=== PATIENT | female | born 1995 | race Two or more races ===

== ENCOUNTER 2018-01-07 05:38 | Emergency (ER) | payer BC ==
[~2018-01-07] VITALS: Ht 175.3 cm; Wt 54.0 kg
[2018-01-07] MEDS ORDERED: MORPHINE SULFATE 2 MG/ML SYR IV STA (05:51)
[2018-01-07] MEDS ORDERED: ONDANSETRON HCL INJ 2 MG/ML VIAL IV STA (05:51)
[2018-01-07] MEDS ORDERED: SODIUM CHLORIDE 0.9% 1000ML 1,000 ML IV ONE (06:00)
[2018-01-07 06:09] LABS: BASOPHILS % 0.1 % (0.0-1.0); EOSINOPHILS % 0.4 % (0.0-6.0); HEMATOCRIT 42.1 % (34.2-44.1); LYMPHOCYTES # (AUTO) 3.6 (1.0-3.2); LYMPHOCYTES % 35.4 % (18.0-39.1); MEAN CORPUSCULAR HEMOGLOBIN 31.6 pg (28-32); MEAN CORPUSCULAR HGB CONC 35.6 g/dL (31-35); MEAN CORPUSCULAR VOLUME 88.8 fL (81-99); MONOCYTES % 9.6 % (4.4-11.3); NEUTROPHILS # (AUTO) 5.5 (2.1-6.9); NEUTROPHILS % 54.2 % (38.7-80.0); PLATELET COUNT 247 x10e3/uL (140-360); RED BLOOD COUNT 4.74 x10e6/uL (3.6-5.1)
[2018-01-07 06:15] LABS: BILIRUBIN,URINE NEGATIVE (NEGATIVE); CLARITY,URINE CLOUDY (CLEAR); COLOR,URINE STRAW (YELLOW); KETONES,URINE NEGATIVE (NEGATIVE); LEUKOCYTE ESTERASE ,URINE NEGATIVE (NEGATIVE); NITRITE,URINE NEGATIVE (NEGATIVE); PREGNANCY TEST, URINE NEGATIVE (NEGATIVE); PROTEIN,URINE DIPSTICK NEGATIVE (NEGATIVE); URINE UROBILINOGEN 0.2 mg/dL (0.2 - 1)
[2018-01-07 06:25] LABS: ALANINE AMINOTRANSFERASE 26 IU/L (0-55); ALBUMIN/GLOBULIN RATIO 1.7 (0.8-2.0); ALKALINE PHOSPHATASE 79 IU/L (40-150); ANION GAP 18.4 mmol/L (8-16); BLOOD UREA NITROGEN 6 mg/dL (7-26); BUN/CREATININE RATIO 8 (6-25); CALCIUM 10.6 mg/dL (8.4-10.2); CARBON DIOXIDE 20 mmol/L (22-29); CHLORIDE 103 mmol/L (98-107); CREATININE, SERUM 0.76 mg/dL (0.57-1.11); EST GLOMERULAR FILTRATION RATE > 60 ML/MIN (60-); GLUCOSE 104 mg/dL (74-118); POTASSIUM 3.4 mmol/L (3.5-5.1); SODIUM 138 mmol/L (136-145)
[2018-01-07 06:29] LABS: BACTERIA,URINE FEW /HPF; EPITHELIAL CELLS,URINE RARE /LPF
[2018-01-07 06:41] LABS: AMYLASE 78 U/L (25-125); LIPASE 16 U/L (8-78)
--- NOTE | 2018-01-07 07:27 | Diagnostic Imaging Report ---
PROCEDURE: CT ABDOMEN AND PELVIS WITH CONTRAST TECHNIQUE: The abdomen and pelvis were scanned utilizing a multidetector helical scanner from the diaphragm to the lesser trochanter after the IV administration of 100 cc of Isovue 370 and the oral administration of 900 cc of water. Coronal and sagittal multiplanar reformations were obtained. COMPARISON: None. INDICATIONS: RIGHT LOWER QUADRANT PAIN FINDINGS: LOWER THORAX: Normal. HEPATOBILIARY: No focal hepatic lesions. No biliary ductal dilatation. SPLEEN: No splenomegaly. PANCREAS: No focal masses or ductal dilatation. ADRENALS: No adrenal nodules. KIDNEYS/URETERS: No hydronephrosis, stones, or solid mass lesions. PELVIC ORGANS/BLADDER: The bladder is distended. PERITONEUM / RETROPERITONEUM: No free air or fluid. LYMPH NODES: No lymphadenopathy. VESSELS: Unremarkable. GI TRACT: No distention or wall thickening. Normal appendix. There is fecalization of jejunal loops without distension, suggestive of slow transit. BONES AND SOFT TISSUES: Unremarkable. IMPRESSION: No CT evidence of appendicitis or other etiology for right lower quadrant pain. Distended bladder. Dictated by: LIDIA PICKETT M.D. on 01/07/2018 at 7:34 Electronically approved by: LIDIA PICKETT M.D. on 01/07/2018 at 7:34
[2018-01-07] MEDS ORDERED: SODIUM CHLORIDE 0.9% 50ML 50 ML ONE (08:14)
[2018-01-07] MEDS ORDERED: IOPAMIDOL 370 MG/ML 200 ML INFUS..BTL INJ ONE (08:14)
--- NOTE | 2018-01-07 09:08 | Diagnostic Imaging Report ---
PROCEDURE:PELVIC DOPPLER US COMPARISON:None. INDICATIONS:Eval for Cyst / Ovarian Torsion, Right Side Pain TECHNIQUE: Grayscale transverse and sagittal transabdominal and transvaginal images were obtained of the pelvis. Transvaginal imaging was medically necessary to further evaluate etiology of pain. FINDINGS: UTERUS: Measures up to 6.2 cm in length. Unremarkable appearance without evidence of mass. ENDOMETRIUM: Endometrial stripe measures 4 mm. RIGHT OVARY: Measures up to 4 cm and is unremarkable in appearance. Doppler flow is demonstrated. No evidence of mass. LEFT OVARY: Measures up to 3.8 cm and demonstrates Doppler flow. There is a left ovarian cyst, measuring up to 3.2 cm, with some wall thickening, and peripheral flow. There is small amount of likely physiologic free fluid within the pelvis. No adnexal masses. CONCLUSION: No acute sonographic abnormality in the abdomen or pelvis. Vascular flow is demonstrated in bilateral ovaries. A 3.2 cm likely corpus luteum cyst in the left ovary, likely physiologic. Dictated by: LIDIA PICKETT M.D. on 01/07/2018 at 9:15 Electronically approved by: LIDIA PICKETT M.D. on 01/07/2018 at 9:15
--- NOTE | 2018-01-07 09:09 | Diagnostic Imaging Report ---
PROCEDURE:TRANSVAGINAL ULTRASOUND COMPARISON:None. INDICATIONS:Eval for Cyst / Ovarian Torsion, Right Side Pain TECHNIQUE: Grayscale transverse and sagittal transabdominal and transvaginal images were obtained of the pelvis. FINDINGS: Please refer to the concurrently performed pelvic ultrasound report for details. Dictated by: LIDIA PICKETT M.D. on 01/07/2018 at 9:15 Electronically approved by: LIDIA PICKETT M.D. on 01/07/2018 at 9:15
[2018-01-07] MEDS ORDERED: KETOROLAC TROMETHAMINE 30 MG/ML VIAL IV STA (09:37)
== END 2018-01-07 10:21 | disposition home or self-care (01) ==
LOC: ER 05:38
DX: R10.31 Right lower quadrant pain (principal); R10.2 Pelvic and perineal pain; N83.12 Corpus luteum cyst of left ovary; F90.9 Attention-deficit hyperactivity disorder, unspecified type; F41.9 Anxiety disorder, unspecified
CPT/HCPCS: 36415; 74177; 76830; 80053; 81001; 81025; 82150; 83690; 85025; 93976; 96374; 96376; 99284; J1885; J2270; J2405; J7030; Q9967

== ENCOUNTER 2018-04-11 16:49 | Emergency (ER) | payer BC ==
--- OUTSIDE RECORDS SUMMARY | 2018-04-11 16:51 | XMS REPORT ---
Author Author [facility] Address Unknown Phone Unavailable Care Team Providers Care Process Developer Name Role Phone Syeda CHENEY Unavailable Unavailable Problems This patient has no known problems. Allergies, Adverse Reactions, Alerts This patient has no known allergies or adverse reactions. Medications This patient has no known medications. Results Test Description Test Time Test Comments Text Results Atomic Results Result Comments US TRANSVAGINAL 2018-01-07 09:15:00 [place] [address] Patient Name: AMAYA QUESADA MR #: [id number] : 1995 Age/Sex: 22/F Req #: [id number] Adm Physician: Ordered by: SIN CHENEY MD Report #: [id number] Location: ER Room/Bed: Procedure: [id number] US/US TRANSVAGINAL Exam Date: Exam Time: REPORT STATUS: Signed PROCEDURE: TRANSVAGINAL ULTRASOUND COMPARISON: None. INDICATIONS: Eval for Cyst / Ovarian Torsion, Right Side Pain TECHNIQUE: Grayscale transverse and sagittal transabdominal and transvaginal images were obtained of the pelvis. FINDINGS: Please refer to the concurrently performed pelvic ultrasound report for details. Dictated by: LIDIA PICKETT M.D. on 01/07/2018 at 9:15 Electronically approved by: LIDIA PICKETT M.D. on 01/07/2018 at 9:15 Dictated By: LIDIA PICKETT MD 4 Transcribed By: CLAUDIA on 01/07/18914 COPY TO: SIN CHENEY MD US PELVIC DOPPLER LTD 2018-01-07 09:15:00 [place] [id number] Patient Name: AMAYA QUESADA MR #: [id number] : 1995 Age/Sex: 22/F Req #: [id number] Adm Physician: Ordered by: SIN CHENEY MD Report #: [id number] Location: ER Room/Bed: Procedure: [id number] US/US PELVIC DOPPLER LTD Exam Date: Exam Time: REPORT STATUS: Signed PROCEDURE: PELVIC DOPPLER US COMPARISON: None. INDICATIONS: Eval for Cyst / Ovarian Torsion, Right Side Pain TECHNIQUE: Grayscale transverse and sagittal transabdominal and transvaginal images were obtained of the pelvis. Transvaginal imaging was medically necessary to further evaluate etiology of pain. FINDINGS: UTERUS: Measures up to 6.2 cm in length. Unremarkable appearance without evidence of mass. ENDOMETRIUM: Endometrial stripe measures 4 mm. RIGHT OVARY: Measures up to 4 cm and is unremarkable in appearance. Doppler flow is demonstrated. No evidence of mass. LEFT OVARY: Measures up to 3.8 cm and demonstrates Doppler flow. There is a left ovarian cyst, measuring up to 3.2 cm, with some wall thickening, and peripheral flow. There is small amount of likely physiologic free fluid within the pelvis. No adnexal masses. CONCLUSION: No acute sonographic abnormality in the abdomen or pelvis. Vascular flow is demonstrated in bilateral ovaries. A 3.2 cm likely corpus luteum cyst in the left ovary, likely physiologic. Dictated by: LIDIA PICKETT M.D. on 01/07/2018 at 9:15 Electronically approved by: LIDIA PICKETT M.D. on 01/07/2018 at 9:15 Dictated By: LIDIA PICKETT MD 4 Transcribed By: CLAUDIA on 01/07/18914 COPY TO: SIN CHENEY MD CT ABDOMEN/PELVIS W 2018-01-07 07:34:00 [place] [id number] Patient Name: AMAYA QUESADA MR #: [id number] : 1995 Age/Sex: 22/F Req #: [id number] Adm Physician: Ordered by: SIN CHENEY MD Report #: [id number] Location: ER Room/Bed: Procedure: [id number] CT/CT ABDOMEN/PELVIS W Exam Date: 01/07/18 Exam Time: 0700 REPORT STATUS: Signed PROCEDURE: CT ABDOMEN AND PELVIS WITH CONTRAST TECHNIQUE: The abdomen and pelvis were scanned utilizing a multidetector helical scanner from the diaphragm to the lesser trochanter after the IV administration of 100 cc of Isovue 370 and the oral administration of 900 cc of water. Coronal and sagittal multiplanar reformations were obtained. COMPARISON: None. INDICATIONS: RIGHT LOWER QUADRANT PAIN FINDINGS: LOWER THORAX: Normal. HEPATOBILIARY: No focal hepatic lesions. No biliary ductal dilatation. SPLEEN: No splenomegaly. PANCREAS: No focal masses or ductal dilatation. ADRENALS: No adrenal nodules. KIDNEYS/URETERS: No hydronephrosis, stones, or solid mass lesions. PELVIC ORGANS/BLADDER: The bladder is distended. PERITONEUM / RETROPERITONEUM: No free air or fluid. LYMPH NODES: No lymphadenopathy. VESSELS: Unremarkable. GI TRACT: No distention or wall thickening. Normal appendix. There is fecalization of jejunal loops without distension, suggestive of slow transit. BONES AND SOFT TISSUES: Unremarkable. IMPRESSION: No CT evidence of appendicitis or other etiology for right lower quadrant pain. Distended bladder. Dictated by: LIDIA PICKETT M.D. on 01/07/2018 at 7:34 Electronically approved by: LIDIA PICKETT M.D. on 01/07/2018 at 7:34 Dictated By: LIDIA PICKETT MD 3 Transcribed By: CLAUDIA on 01/07/18733 COPY TO: SIN CHENEY MD
== END 2018-04-11 16:55 | disposition left against medical advice (07) ==
LOC: FSED 16:49
DX: R41.0 Disorientation, unspecified (principal)

== ENCOUNTER → 2018-06-15 | Day surgery (SDC) | payer BC ==
[~2018-06-15] MED LIST: CALCIUM; FENTANYL CITRATE/PF 100MCG/2 ML INJ ONE; FIBER; MAGNESIUM; MIDAZOLAM HCL 2 MG/2 ML VIAL ONE; OMEPRAZOLE40 MG; PROPOFOL IV EMULSION 10 MG/ML 50 ML VIAL ONE; [UNRECOGNIZED DRUG - OTHER]
--- OUTSIDE RECORDS SUMMARY | 2018-06-15 13:24 | XMS REPORT | Clinical Summary ---
Author Author [facility] Organization [facility] Address Unknown Phone Unavailable Care Team Providers Care Geological Survey Field Assistant Name Role Phone Asked, No Pcp PCP Unavailable Allergies No Known Allergies Medications End Date Status Medication Sig Dispensed Refills Start Date 04/15/2018 acetaminophen-codeine Take 1 tablet 10 tablet 0 (TYLENOL WITH CODEINE #3) by mouth 8 300-30 mg per tablet every 8 (eight) hours as needed for moderate pain for up to 3 days. 05/12/2018 meloxicam (MOBIC) 15 mg Take 1 tablet 20 tablet 0 tablet (15 mg total) 8 by mouth daily as needed for mild pain or moderate pain for up to 30 days. 04/19/2018 nitrofurantoin, Take 1 14 capsule 0 macrocrystal-monohydrate, capsule (100 8 (MACROBID) 100 MG capsule mg total) by mouth 2 (two) times a day for 7 days. Active Problems Not on file Encounters Care Team Description Date Type Specialty Willie Pang MD Left-sided headache (Primary Dx); Urinary tract infection without hematuria, site unspecified; Dehydration 04/11/2018 Emergency Emergency Medicine - 04/12/2018 after 06/14/2017 Social History Date Tobacco Use Types Packs/Day Years Used Never Assessed Sex Assigned at Date Recorded Not on file Industry Job Start Date Occupation Not on file Not on file Not on file Travel End Travel History Travel Start No recent travel history available. Last Filed Vital Signs Time Taken Vital Sign Reading 04/12/2018 2:13 AM MEDICAL DETAIL REPRESENTATIVE Blood Pressure 132/92 04/12/2018 2:13 AM MEDICAL DETAIL REPRESENTATIVE Pulse 57 04/12/2018 2:13 AM MEDICAL DETAIL REPRESENTATIVE Temperature 36.7 C (98.1 F) 04/12/2018 2:13 AM MEDICAL DETAIL REPRESENTATIVE Respiratory Rate 20 04/12/2018 2:13 AM MEDICAL DETAIL REPRESENTATIVE Oxygen Saturation 97% - Inhaled Oxygen - Concentration 04/11/2018 5:40 PM MEDICAL DETAIL REPRESENTATIVE Weight 55.8 kg (123 lb) 04/11/2018 5:40 PM MEDICAL DETAIL REPRESENTATIVE Height 172.7 cm (5' 8") 04/11/2018 5:40 PM MEDICAL DETAIL REPRESENTATIVE Body Mass Index 18.7 Plan of Treatment Health Maintenance Due Date Last Done Comments CHLAMYDIA SCREENING 2012 INFLUENZA VACCINE 12/15/2017 CERVICAL CANCER SCREENING 2017 Procedures Comments Procedure Name Priority Date/Time Associated Diagnosis HCG QUALITATIVE, URINE Routine 04/12/2018 SCREEN 12:05 AM MEDICAL DETAIL REPRESENTATIVE CT ANGIOGRAM HEAD W WO STAT 04/11/2018 CONTRAST 11:40 PM MEDICAL DETAIL REPRESENTATIVE ESTIMATED GFR STAT 04/11/2018 10:03 PM MEDICAL DETAIL REPRESENTATIVE SEDIMENTATION RATE STAT 04/11/2018 10:03 PM MEDICAL DETAIL REPRESENTATIVE T4, FREE STAT 04/11/2018 10:03 PM MEDICAL DETAIL REPRESENTATIVE THYROID STIMULATING STAT 04/11/2018 HORMONE 10:03 PM MEDICAL DETAIL REPRESENTATIVE URINE DRUGS OF ABUSE STAT 04/11/2018 SCREEN 10:03 PM MEDICAL DETAIL REPRESENTATIVE URINALYSIS SCREEN AND STAT 04/11/2018 MICROSCOPY, WITH REFLEX 10:03 PM MEDICAL DETAIL REPRESENTATIVE TO CULTURE COMPREHENSIVE METABOLIC STAT 04/11/2018 PANEL 10:03 PM MEDICAL DETAIL REPRESENTATIVE PARTIAL THROMBOPLASTIN STAT 04/11/2018 TIME (PTT) 10:03 PM MEDICAL DETAIL REPRESENTATIVE PROTHROMBIN TIME WITH INR STAT 04/11/2018 10:03 PM MEDICAL DETAIL REPRESENTATIVE HC COMPLETE BLD COUNT STAT 04/11/2018 W/AUTO DIFF 10:03 PM MEDICAL DETAIL REPRESENTATIVE GRAM STAIN STAT 04/11/2018 10:03 PM MEDICAL DETAIL REPRESENTATIVE URINE CULTURE STAT 04/11/2018 10:03 PM MEDICAL DETAIL REPRES[address]ATIVE CT HEAD WO CONTRAST STAT 04/11/2018 6:33 PM MEDICAL DETAIL REPRESENTATIVE after 06/14/2017 Results * hCG qualitative, urine screen (04/12/2018 12:05 AM MEDICAL DETAIL REPRESENTATIVE) hCG qualitative, urine Negative Negative [facility] Comment: [facility] The manufacturers stated sensitivity of HcG test for serum is >/=10 mIU/ml and urine is >/=20mIU/ml. Specimen Urine Performing Organization Address City/State/Zipcode Phone [place] [address] [place] [address] [facility] [address] [address] [place] [address] [facility] * CTA Head W Wo Contrast (04/11/2018 11:40 PM MEDICAL DETAIL REPRESENTATIVE) Narrative Performed At EXAMINATION: CT ANGIOGRAM HEAD W WO CONTRAST RADIANT CLINICAL HISTORY: L sided headache COMPARISON:None TECHNIQUE:Imaging of the intracranial circulation was obtained from the skull base to the vertex during the arterial phase of enhancement. Postprocessing was performed with MIP multiplanar and 3D reconstructed images.CT imaging was performed with iterative reconstruction technique and/or automated exposure control to reduce radiation dose. FINDINGS: There are no gross brain parenchymal abnormalities. There is no midline shift, hydrocephalus or extra-axial fluid collection. The major dural sinuses are opacified normally. Soft tissue shows no evidence of laceration or hematoma. No hemodynamically significant stenosis is identified of the intracranial internal carotid arteries, middle cerebral arteries, anterior cerebral arteries, intracranial vertebral arteries, basilar artery or posterior cerebral arteries. There is no aneurysmal dilatation or vascular malformation of the [place]. There is no air-fluid level in the sinuses. Osseous calvarium is intact. IMPRESSION: No hemodynamically significant narrowing of the [place] vessels. [facility][id number] Procedure Note Hm Interface, Radiology Results Incoming - 04/11/2018 11:54 PM MEDICAL DETAIL REPRESENTATIVE EXAMINATION: CT ANGIOGRAM HEAD W WO CONTRAST CLINICAL HISTORY: L sided headache COMPARISON: None TECHNIQUE: Imaging of the intracranial circulation was obtained from the skull base to the vertex during the arterial phase of enhancement. Postprocessing was performed with MIP multiplanar and 3D reconstructed images. CT imaging was performed with iterative reconstruction technique and/or automated exposure control to reduce radiation dose. FINDINGS: There are no gross brain parenchymal abnormalities. There is no midline shift, hydrocephalus or extra-axial fluid collection. The major dural sinuses are opacified normally. Soft tissue shows no evidence of laceration or hematoma. No hemodynamically significant stenosis is identified of the intracranial internal carotid arteries, middle cerebral arteries, anterior cerebral arteries, intracranial vertebral arteries, basilar artery or posterior cerebral arteries. There is no aneurysmal dilatation or vascular malformation of the [place]. There is no air-fluid level in the sinuses. Osseous calvarium is intact. IMPRESSION: No hemodynamically significant narrowing of the [place] vessels. [facility]-[id number] Performing Organization Address City/State/Zipcode Phone Number [facility] [address] [place] [address] * Urinalysis screen and microscopy, with reflex to culture (04/11/2018 10:03 PM MEDICAL DETAIL REPRESENTATIVE) Specimen site Clean catch [facility] Color, UA Straw [facility] Appearance, UA Slightly-Cloudy [facility] Specific gravity, UA 1.003 1.001 - 1.035 [facility] pH, UA 6.0 5.0 - 8.5 [facility] Protein, UA Negative Negative [facility] Glucose, UA Negative Negative [facility] Ketones, UA Trace (A) Negative [facility] Bilirubin, UA Negative Negative [facility] Blood, UA Negative Negative [facility] Nitrite, UA Negative Negative [facility] Urobilinogen, UA Negative <2.0 [facility] Leukocyte esterase, UA Moderate (A) Negative [facility] Epithelial cells, UA Many /HPF [facility] WBC, UA 0-5 0 - 4 /HPF [facility] RBC, UA 0-5 0 - 5 /HPF [facility] Bacteria, UA Trace None seen [facility] Yeast, UA None seen [facility] Yeast with pseudohyphae, None seen [facility] Specimen Urine Performing Organization Address City/State/Zipcode Phone Number [facility] [address] [place] [address] PATHOLOGY AND GENOMIC MEDICINE [address] [place] [address] [facility] * Estimated GFR (04/11/2018 10:03 PM MEDICAL DETAIL REPRESENTATIVE) Estimated GFR >=90 mL/min/1.[address] [facility] Comment: [facility] CatergoryUnitsInte rpretation G1 >=90 Normal or high G2 60-89Mildly decreased [id number] Mildly to moderately decreased [id number] Moderately to severely decreased G4 15-29Severely decreased G5 <15Kidney failure The eGFR was calculated using the Chronic Kidney Disease Epidemiology Collaboration (CKD-EPI) equation. Interpretation is based on recommendations of the National Kidney Foundation-Kidney Disease Outcomes Quality Initiative (NKF-KDOQI) published in 2014. Specimen Plasma specimen Performing Organization Address [facility] Phone Number [address] [place] [address] PATHOLOGY AND GENOMIC MEDICINE [address] * Urine drugs of abuse screen (04/11/2018 10:03 PM MEDICAL DETAIL REPRESENTATIVE) Amphetamine screen, urine Positive (A) [facility] Methamphetamine screen, Negative [facility] urine [facility] Barbiturate screen, urine Negative [facility] Benzodiazepine screen, Negative [facility] urine [facility] Cocaine screen, urine Negative [facility] Methadone screen, urine Negative [facility] Opiates screen, urine Negative [facility] Phencyclidine screen, Negative [facility] urine [facility] Cannabinoid screen, urine Negative [facility] Tricyclic screen, urine Negative [facility] Comment: [facility] Drug screen minimum concentration of detectability Amphetamines 1000 ng/mL Methamphetamines 1000 ng/mL Barbiturates 300 ng/mL Benzodiazepines 300 ng/mL Cocaine 300 ng/mL Methadone 300 ng/mL Opiates 300 ng/mL Phencyclidine 25 ng/mL Cannabinoids 50 ng/mL Tricyclics 1000 ng/mL Negative test results indicates presumptive evidence of lack of clinically significant drug concentration in this urine specimen. Positive test results are presumptive evidence of clinically significant drug concentration in this urine specimen. Testing performed for medical purposes only. Specimen Urine Performing Organization Address [facility] Phone Number [address] [place] [address] PATHOLOGY AND GENOMIC MEDICINE [address] * Partial thromboplastin time, activated (04/11/2018 10:03 PM MEDICAL DETAIL REPRESENTATIVE) PTT 38.4 (H) 23.0 - 36.[address] [facility] Comment: [facility] PTT therapeutic range for unfractionated heparin is 61.0-112.0 seconds which corresponds to Anti-Xa 0.3-0.7 U/ml. Specimen Blood Performing Organization Address [facility] Phone Number [address] [place] [address] PATHOLOGY AND GENOMIC MEDICINE [address] * Sedimentation rate (04/11/2018 10:03 PM MEDICAL DETAIL REPRESENTATIVE) Sedimentation rate 7 0 - 20 mm/hr [facility] Specimen Blood Performing Organization Address [facility] [place] Phone Number [address] [place] [address] PATHOLOGY AND GENOMIC MEDICINE [address] * Prothrombin time with INR (04/11/2018 10:03 PM MEDICAL DETAIL REPRESENTATIVE) Prothrombin time 13.1 11.5 - 14.5 sec [facility] INR [address] [facility] Comment: [facility] The International Normalized Ratio (INR) is a therapeutic monitoring tool for patients who are stable on oral anticoagulant therapy. An INR of 2.0-3.0 is suggested for deep vein thrombosis/pulmonary embolism. Specimen Blood Performing Organization Address [facility] Phone Number [address] [place] [address] PATHOLOGY AND GENOMIC MEDICINE [address] * Gram stain (04/11/2018 10:03 PM MEDICAL DETAIL REPRESENTATIVE) Gram stain result Rare WBC's [facility] Gram positive [facility] Comment: Specimen Information Specimen Source: Urine Specimen Site: Clean catch Specimen Urine Performing Organization Address [facility]/Zipcode Phone Number [facility] DEPARTMENT OF [address] [place] [address] PATHOLOGY AND GENOMIC MEDICINE CERDA TAOIST [address] * CBC with platelet and differential (04/11/2018 10:03 PM MEDICAL DETAIL REPRESENTATIVE) WBC 11.79 (H) 4.50 - 11.00 k/uL [facility] RBC 5.02 4.20 - 5.50 m/uL [facility] HGB 15.3 12.0 - 16.0 g/dL [facility] HCT 46.0 37.0 - 47.0 % [facility] MCV 91.6 82.0 - 100.0 fL [facility] MCH 30.5 27.0 - 34.0 pg [facility] MCHC 33.3 31.0 - 37.0 g/dL [facility] RDW - SD 41.5 37.0 - 55.0 fL [facility] MPV 10.3 8.8 - 13.2 fL [facility] Platelet count 319 150 - 400 k/uL [facility] Nucleated RBC 0.00 /100 WBC [facility] Neutrophils 68.7 39.0 - 69.0 % [facility] Lymphocytes 24.5 (L) 25.0 - 45.0 % [facility] Monocytes 5.9 0.0 - 10.0 % [facility] Eosinophils 0.5 0.0 - 5.0 % [facility] Basophils 0.1 0.0 - 1.0 % [facility] Specimen Blood Performing Organization Address City/State/Zipcode Phone Number [facility] [place] [id number] [place] [address] [place] [address] PATHOLOGY AND GENOMIC MEDICINE [facility] [id number] [place] [address] * Urine culture (04/11/2018 10:03 PM MEDICAL DETAIL REPRESENTATIVE) Urine culture isolate [facility] yanelis <=10-3 col/cc Comment: Specimen Information Specimen Source: Urine Specimen Site: Clean catch Specimen Urine Performing Organization Address [facility] Phone Number [facility] DEPARTMENT OF [address] [place] [address] PATHOLOGY AND [facility] MEDICINE [address] * Thyroid stimulating hormone (04/11/2018 10:03 PM MEDICAL DETAIL REPRESENTATIVE) TSH 3.98 0.27 - 4.20 uIU/mL [facility] Specimen Plasma specimen Performing Organization Address [facility] [place] Phone Number [address] [place] [address] PATHOLOGY AND GENOMIC MEDICINE [address] * T4, free (04/11/2018 10:03 PM MEDICAL DETAIL REPRESENTATIVE) T4, free 1.53 0.90 - 1.70 ng/dL [facility] Specimen Plasma specimen Performing Organization Address [facility] [place] Phone Number [address] [place] [address] PATHOLOGY AND GENOMIC MEDICINE [address] * Comprehensive metabolic panel (04/11/2018 10:03 PM MEDICAL DETAIL REPRESENTATIVE) Sodium 137 135 - 148 mEq/L [facility] Potassium 3.6 3.5 - 5.0 mEq/L [facility] Chloride 100 98 - 112 mEq/L [facility] CO2 25 24 - 31 mEq/L [facility] Anion gap 12@ANIO 7 - 15 mEq/L [facility] BUN 10 6 - 20 mg/dL [facility] Creatinine 0.70 0.50 - 0.90 mg/dL [facility] Glucose 95 65 - 99 mg/dL [facility] Calcium 10.3 (H) 8.3 - 10.2 mg/dL [facility] Protein 8.8 (H) 6.3 - 8.3 g/dL [facility] Comment: [facility] [place] 4.6-7.0 g/dL 1 week 4.4-7.6 g/dL 7 months-1year 5.1-7.3 g/dL 1-2 years5.6-7 .5 g/dL >3 years6.0-8 .0 g/dL 18-150 6.3-8.3 g/dL Albumin 5.2 (H) 3.5 - 5.0 g/dL [facility] A/G ratio 1.4 0.7 - 3.8 [facility] Alkaline phosphatase 108 (H) 35 - 104 U/L [facility] AST 26 10 - 35 U/L [facility] ALT 27 5 - 50 U/L [facility] Total bilirubin 0.4 0.0 - 1.2 mg/dL [facility] Specimen Plasma specimen Performing Organization Address City/State/Zipcode Phone Number [facility] [place] [id number] [place] [address] [place] [address] PATHOLOGY AND GENOMIC MEDICINE [facility] [address] [place] [address] [facility] * CT Head Wo Contrast (04/11/2018 6:33 PM MEDICAL DETAIL REPRESENTATIVE) Narrative Performed At EXAM: CT HEAD WO CONTRAST RADIANT CLINICAL HISTORY: headache TECHNIQUE: Noncontrast enhanced images of the brain were obtained from the skull base to the vertex. Both soft tissue and bone reconstruction algorithms were performed. CT scans are performed using radiation dose reduction techniques (iterative reconstruction and/or automated exposure control). Technical factors are evaluated and adjusted to ensure appropriate moderation of exposure. Automated dose management technology is applied to adjust radiation exposure while achieving a diagnostic quality image. COMPARISON:None. FINDINGS: The johns-white matter differentiation is preserved and without evidence of acute territorial infarction. There is no evidence for acute intracranial hemorrhage, mass, mass effect, hydrocephalus, or extra-axial fluid collection. Orbits are unremarkable.Paranasal sinuses are clear.Mastoid air cells are normally pneumatized.Osseous structures are intact. IMPRESSION: No CT evidence for acute intracranial abnormality. [facility]-[id number] Procedure Note Interface, Radiology Results Incoming - 04/11/2018 6:38 PM MEDICAL DETAIL REPRESENTATIVE EXAM: CT HEAD WO CONTRAST CLINICAL HISTORY: headache TECHNIQUE: Noncontrast enhanced images of the brain were obtained from the skull base to the vertex. Both soft tissue and bone reconstruction algorithms were performed. CT scans are performed using radiation dose reduction techniques (iterative reconstruction and/or automated exposure control). Technical factors are evaluated and adjusted to ensure appropriate moderation of exposure. Automated dose management technology is applied to adjust radiation exposure while achieving a diagnostic quality image. COMPARISON: None. FINDINGS: The johns-white matter differentiation is preserved and without evidence of acute territorial infarction. There is no evidence for acute intracranial hemorrhage, mass, mass effect, hydrocephalus, or extra-axial fluid collection. Orbits are unremarkable. Paranasal sinuses are clear. Mastoid air cells are normally pneumatized. Osseous structures are intact. IMPRESSION: No CT evidence for acute intracranial abnormality. [facility]-[id number] Performing Organization Address City/State/Zipcode Phone Number [facility] [address] [place] [address] after 06/14/2017 Insurance Payer Benefit Subscriber ID Type Phone Address Plan / Group BCBS BCBS xxxxxxxxxxxx PPO CHOICE PPO/NOE JAVIER PPO Advance Directives Patient has advance care planning documents on file. For more information, ayesha farris contact: Damaso Turner [address] [place] [address]
[2018-06-15 15:17] VITALS: BP 114/87
--- NOTE | 2018-06-15 15:38 | Operative Report ---
DATE OF PROCEDURE: June 15, 2018 REFERRING PHYSICIAN: Shekhar Webb DO PROCEDURE PERFORMED: Esophagogastroduodenoscopy with esophageal dilatation and biopsies. INDICATIONS FOR PROCEDURE: Upper abdominal pain, heartburn, indigestion, and dysphagia. MEDICATION: Patient was done under MAC. Please see anesthesiologist's note. PROCEDURE: With the patient in the left lateral decubitus position, the flexible fiberoptic Olympus gastroscope was introduced into the esophagus under direct visualization without any difficulty. There was some patchy erythema noted in the distal esophagus. The esophagus was then dilated to size 52-Trin[place] Dawson. The scope was then advanced with ease into the stomach. The mucosa overlying the antrum and the body revealed some patchy erythema and mild to moderate edema, and biopsies were obtained and sent to stain for H. pylori. Pylorus was of normal contour and shape. It was intubated with ease, and the scope was advanced all the way to the 2nd portion of the duodenum. The scope was then withdrawn slowly and some of the folds in the proximal 2nd portion appeared somewhat flattened, and biopsies were obtained to rule out sprue. The scope was then withdrawn back into the stomach and retroflexed. The mucosa overlying the fundus and the cardia appeared to be within normal limits. The scope was then straightened out. It was subsequently withdrawn. Patient tolerated the procedure well. IMPRESSION 1. Mild distal esophagitis. 2. Esophagus dilated to size 52-[place] Dawson. 3. Gastritis, biopsied. Biopsy sent to stain for H. pylori. 4. Rule out sprue. PLAN: Follow up histology. Increase omeprazole to 40 mg 1 p.o. a.c. b.i.d. Job#: [id number] cc:SHEKHAR WEBB DO
== END | disposition home or self-care (01) ==
LOC: OR 13:22
PROVIDERS: ATTEND Internal Medicine Gastroenterology
DX: K29.70 Gastritis, unspecified, without bleeding (principal); K20.9 Esophagitis, unspecified; K21.9 Gastro-esophageal reflux disease without esophagitis; K59.00 Constipation, unspecified; F41.9 Anxiety disorder, unspecified
CPT/HCPCS: 43239; 43450; 81025; J2250; J2704

== ENCOUNTER → 2019-01-02 | Day surgery (SDC) | payer BC ==
[~2019-01-02] MED LIST changes: -FENTANYL CITRATE/PF 100MCG/2 ML INJ ONE; +HYOSCYAMINE 0.125 MG TAB ONE; +LIDOCAINE HCL 2% LOCAL INJ 5 ML SDV VIAL INJ ONE; -OMEPRAZOLE40 MG; +OMEPRAZOLE40 MG PO; +PROPOFOL IV EMULSION 10 MG/ML 20 ML VIAL ONE; +SIMETHICONE 40 MG/0.6 ML BTL ONE
--- OUTSIDE RECORDS SUMMARY | 2019-01-02 06:35 | XMS REPORT | Clinical Summary ---
Author Author [facility] [employer] [facility] Address Unknown Phone Unavailable Care Team Providers Care Research Geologist Name Role Phone Asked, No Pcp PCP [...] 04/11/2018 Emergency Emergency Medicine - 04/12/2018 after 01/01/2018 Social History Date Tobacco Use Types Packs/Day Years Used Never Assessed Sex Assigned at Date Recorded Not on file Industry Job Start Date Occupation Not on file Not on file Not on file Travel End Travel History Travel Start No recent travel history available. Last Filed Vital Signs Reading Time Taken Comments Vital Sign 132/92 04/12/2018 2:13 AM EXERCISE TEACHER Blood Pressure 57 04/12/2018 2:13 AM EXERCISE TEACHER Pulse 36.7 C (98.1 F) 04/12/2018 2:13 AM EXERCISE TEACHER Temperature 20 04/12/2018 2:13 AM EXERCISE TEACHER Respiratory Rate 97% 04/12/2018 2:13 AM EXERCISE TEACHER Oxygen Saturation - - Inhaled Oxygen Concentration 55.8 kg (123 lb) 04/11/2018 5:40 PM EXERCISE TEACHER Weight 172.7 cm (5' 8") 04/11/2018 5:40 PM EXERCISE TEACHER Height 18.7 04/11/2018 5:40 PM EXERCISE TEACHER Body Mass Index Plan of Treatment Health Maintenance Due Date Last Done Comments CHLAMYDIA SCREENING 2012 INFLUENZA VACCINE 12/15/2018 Procedures Comments Procedure Name Priority Date/Time Associated Diagnosis HCG QUALITATIVE, URINE Routine 04/12/2018 SCREEN 12:[address] ANGIOGRAM HEAD W WO STAT 04/11/2018 CONTRAST 11:40 PM EXERCISE TEACHER ESTIMATED GFR STAT 04/11/2018 10:03 PM EXERCISE TEACHER SEDIMENTATION RATE STAT 04/11/2018 10:03 PM EXERCISE TEACHER T4, FREE STAT 04/11/2018 10:03 PM EXERCISE TEACHER THYROID STIMULATING STAT 04/11/2018 HORMONE 10:03 PM EXERCISE TEACHER URINE DRUGS OF ABUSE STAT 04/11/2018 SCREEN 10:03 PM EXERCISE TEACHER URINALYSIS SCREEN AND STAT 04/11/2018 MICROSCOPY, WITH REFLEX 10:03 PM EXERCISE TEACHER TO CULTURE COMPREHENSIVE METABOLIC STAT 04/11/2018 PANEL 10:03 PM EXERCISE TEACHER PARTIAL THROMBOPLASTIN STAT 04/11/2018 TIME (PTT) 10:03 PM EXERCISE TEACHER PROTHROMBIN TIME WITH INR STAT 04/11/2018 10:03 PM EXERCISE TEACHER HC COMPLETE BLD COUNT STAT 04/11/2018 W/AUTO DIFF 10:03 PM EXERCISE TEACHER GRAM STAIN STAT 04/11/2018 10:03 PM EXERCISE TEACHER URINE CULTURE STAT 04/11/2018 10:[address] HEAD WO CONTRAST STAT 04/11/2018 6:33 PM EXERCISE TEACHER after 01/01/2018 Results * hCG qualitative, urine screen (04/12/2018 12:05 AM EXERCISE TEACHER) hCG Negative Negative [facility] qualitative, Comment: GENE MARCIAL urine The manufacturers stated [facility] sensitivity of HcG test for serum is >/=10 mIU/ml and urine is >/=20mIU/ml. Specimen Urine Performing Organization Address City/State/Zipcode [place] [address] [place] [address] PATHOLOGY AND GENOMIC MEDICINE [facility] [address] [address] [place] [address] [facility] * CTA Head W Wo Contrast (04/11/2018 11:40 PM EXERCISE TEACHER) Specimen Narrative Performed At EXAMINATION: CT ANGIOGRAM HEAD [...] aneurysmal dilatation or vascular malformation of the [place]. There is no air-fluid level in the sinuses. Osseous calvarium is intact. IMPRESSION: No hemodynamically significant narrowing of the [place] vessels. [id number] Procedure Note Hm Interface, Radiology Results Incoming - 04/11/2018 11:54 PM EXERCISE TEACHER EXAMINATION: CT ANGIOGRAM HEAD W WO CONTRAST [...] aneurysmal dilatation or vascular malformation of the [place]. There is no air-fluid level in the sinuses. Osseous calvarium is intact. IMPRESSION: No hemodynamically significant narrowing of the [place] vessels. [facility]-[id number] Performing Organization Address City/State/Zipcode Phone Number [facility] [address] [place] [address] * Urinalysis screen and microscopy, with reflex to culture (04/11/2018 10:03 PM EXERCISE TEACHER) Specimen site Clean catch [facility] Color, UA Straw [facility] Appearance, UA Slightly-Cloudy [facility] Specific 1.003 1.001 - 1.035 [place] gravity, UA [facility] pH, UA 6.0 5.0 - 8.5 [facility] Protein, UA Negative Negative [facility] Glucose, UA Negative Negative [facility] Ketones, UA Trace (A) Negative [facility] Bilirubin, UA Negative Negative [facility] Blood, UA Negative Negative [facility] Nitrite, UA Negative Negative [facility] Urobilinogen, Negative <2.0 [facility] Leukocyte Moderate (A) Negative [facility] esterase, UA [facility] Epithelial Many /HPF [facility] cells, UA [facility] WBC, UA 0-5 0 - 4 /HPF [facility] RBC, UA 0-5 0 - 5 /HPF [facility] Bacteria, UA Trace None seen [facility] Yeast, UA None seen [facility] Yeast with None seen [facility] Specimen Urine Performing Organization Address City/State/Zipcode Phone Number [facility] [address] [place] [address] PATHOLOGY AND GENOMIC MEDICINE [address] [place] [address] [facility] * Estimated GFR (04/11/2018 10:03 PM EXERCISE TEACHER) Pathologist [facility] Estimated GFR >=90 mL/min/1.73 m2 [facility] Comment: [facility] rpretation G1 >=90 Normal or high G2 60-89Mildly decreased [id number] Mildly to moderately decreased [id number] Moderately to severely decreased G4 15-29Severely decreased G5 <15Kidney failure The eGFR was calculated using the Chronic Kidney Disease Epidemiology Collaboration (CKD-EPI) equation. Interpretation is based on recommendations of the National Kidney Foundation-Kidney Disease Outcomes Quality Initiative (NKF-KDOQI) published in 2014. Specimen Plasma specimen Performing Organization Address [facility] Phone Number [address] [place] [address] PATHOLOGY AND [facility] MEDICINE [address] * Urine drugs of abuse screen (04/11/2018 10:03 PM EXERCISE TEACHER) [facility] Amphetamine Positive (A) [facility] screen, urine [facility] Methamphetamine Negative [facility] screen, urine [facility] Barbiturate Negative [facility] screen, urine [facility] Benzodiazepine Negative [facility] screen, urine [facility] Cocaine screen, Negative [facility] urine [facility] Methadone Negative [facility] screen, urine [facility] Opiates screen, Negative [facility] urine [facility] Phencyclidine Negative [facility] screen, urine [facility] Cannabinoid Negative [facility] screen, urine [facility] Tricyclic Negative [facility] screen, urine Comment: [facility] Drug screen [facility] concentration of detectability Amphetamines 1000 ng/mL Methamphetamines [...] purposes only. Specimen Urine Performing Organization Address [facility] Phone Number [address] [place] [address] PATHOLOGY AND GENOMIC MEDICINE [address] * Partial thromboplastin time, activated (04/11/2018 10:03 PM EXERCISE TEACHER) [facility] PTT 38.4 (H) 23.0 - 36.0 sec [facility] Comment: [facility] PTT therapeutic range for [facility] unfractionated heparin is 61.0-112.0 seconds which corresponds to Anti-Xa 0.3-0.7 U/ml. Specimen Blood Performing Organization Address [facility] Phone Number [facility] DEPARTMENT [address] [place] [address] PATHOLOGY AND [facility] MEDICINE [address] * Sedimentation rate (04/11/2018 10:03 PM EXERCISE TEACHER) [facility] Sedimentation 7 0 - 20 mm/hr [facility] Specimen Blood Performing Organization Address [facility] Phone Number [facility] DEPARTMENT [address] [place] [address] PATHOLOGY AND [facility] MED[facility]INE [address] * Prothrombin time with INR (04/11/2018 10:03 PM EXERCISE TEACHER) [facility] Prothrombin 13.1 11.5 - 14.5 sec [facility] INR 1.0 [facility] Comment: [facility] International Normalized [facility] Ratio (INR) is a therapeutic monitoring tool for patients who are stable on oral anticoagulant therapy. An INR of 2.0-3.0 is suggested for deep vein thrombosis/pulmonary embolism. Specimen Blood Performing Organization Address [facility] Phone Number [facility] DEPARTMENT [address] [place] [address] PATHOLOGY AND [facility] MEDICINE [address] * Gram stain (04/11/2018 10:03 PM EXERCISE TEACHER) [facility] Gram stain Rare WBC's [facility] result Many Gram positive rods [facility] Comment: HOSPITAL Specimen Information Specimen Source: Urine Specimen Site: Clean catch Specimen Urine Performing Organization Address City/[facility]/Zipcode Phone Number [facility] DEPARTMENT OF [address] [place] [address] PATHOLOGY AND GENOMIC MEDICINE [facility] [address] * CBC with platelet and differential (04/11/2018 10:03 PM EXERCISE TEACHER) [facility] WBC 11.79 (H) 4.50 - 11.00 k/uL [facility] RBC 5.02 4.20 - 5.50 m/uL [facility] HGB 15.3 12.0 - 16.0 g/dL [facility] HCT 46.0 37.0 - 47.0 % [facility] MCV 91.6 82.0 - 100.0 fL [facility] MCH 30.5 27.0 - 34.0 pg [facility] MCHC 33.3 31.0 - 37.0 g/dL [facility] RDW - SD 41.5 37.0 - 55.0 fL [facility] MPV 10.3 8.8 - 13.2 fL [facility] Platelet count 319 150 - 400 k/uL [facility] Nucleated RBC 0.00 /100 WBC [facility] Neutrophils 68.7 39.0 - 69.0 % [facility] Lymphocytes 24.5 (L) 25.0 - 45.0 % [facility] Monocytes 5.9 0.0 - 10.0 % [facility] Eosinophils 0.5 0.0 - 5.0 % [facility] Basophils 0.1 0.0 - 1.0 % [facility] Specimen Blood Performing Organization Address City/State/Zipcode Phone Number [facility] [id number] [place] [address] [place] [address] PATHOLOGY AND GENOMIC MEDICINE [address] * Urine culture (04/11/2018 10:03 PM EXERCISE TEACHER) [facility] Urine culture [facility] isolate Mixed [facility] yanelis <=10-3 HOSPITAL col/cc Comment: Specimen Information Specimen Source: Urine Specimen Site: Clean catch Specimen Urine Performing Organization Address City/[facility] Phone Number [facility] DEPARTMENT OF [address] [place] [address] PATHOLOGY AND GENOMIC MEDICINE [address] * Thyroid stimulating hormone (04/11/2018 10:03 PM EXERCISE TEACHER) TSH 3.98 0.27 - 4.20 uIU/mL [facility] Specimen Plasma specimen Performing Organization Address City/[facility] Phone Number [facility] DEPARTMENT [address] [place] [address] PATHOLOGY AND GENOMIC MEDICINE [address] * T4, free (04/11/2018 10:03 PM EXERCISE TEACHER) Pathologist [facility] T4, free 1.53 0.90 - 1.70 ng/dL [facility] Specimen Plasma specimen Performing Organization Address [facility] Phone Number [facility] DEPARTMENT [address] [place] [address] PATHOLOGY AND GENOMIC MEDICINE [address] * Comprehensive metabolic panel (04/11/2018 10:03 PM EXERCISE TEACHER) Pathologist [facility] Sodium 137 135 - 148 mEq/L [facility] Potassium 3.6 3.5 - 5.0 mEq/L [facility] Chloride 100 98 - 112 mEq/L [facility] CO2 25 24 - 31 mEq/L [facility] Anion gap 12@ANIO 7 - 15 mEq/L [facility] BUN 10 6 - 20 mg/dL [facility] Creatinine 0.70 0.50 - 0.90 mg/dL [facility] Glucose 95 65 - 99 mg/dL [facility] Calcium 10.3 (H) 8.3 - 10.2 mg/dL [facility] Protein 8.8 (H) 6.3 - 8.3 g/dL [facility] Comment: [facility] 4.6-7.0 g/dL 1 week 4.4-7.6 g/dL 7 months-1year 5.1-7.3 g/dL 1-2 years5.6-7 .5 g/dL >3 years6.0-8 .0 g/dL 18-150 6.3-8.3 g/dL Albumin 5.2 (H) 3.5 - 5.0 g/dL [facility] A/G ratio 1.4 0.7 - 3.8 [facility] Alkaline 108 (H) 35 - 104 U/L [facility] phosphatase [facility] AST 26 10 - 35 U/L [facility] ALT 27 5 - 50 U/L [facility] Total bilirubin 0.4 0.0 - 1.2 mg/dL [facility] Specimen Plasma specimen Performing Organization Address City/State/Zipcode Phone Number [facility] DEPARTMENT [id number] [place] [address] [place] [address] [facility] [id number] [place] [address] * CT Head Wo Contrast (04/11/2018 6:33 PM EXERCISE TEACHER) Specimen Narrative Performed At EXAM: CT HEAD WO [...] No CT evidence for acute intracranial abnormality. [facility]-[id number] Procedure Note Hm Interface, Radiology Results Incoming - 04/11/2018 6:38 PM EXERCISE TEACHER EXAM: CT HEAD WO CONTRAST CLINICAL HISTORY: [...] No CT evidence for acute intracranial abnormality. [facility]-[id number] Performing Organization Address City/State/Zipcode Phone Number [facility] [address] [place] [address] after 01/01/2018 Insurance Type Payer Benefit Subscriber ID Effective Phone Address Plan / Dates Group PPO BCBS BCBS xxxxxxxxxxxx [id number] CHOICE resent PPO/NOE JAVIER PPO Advance Directives Patient Sign Fabricator Explanation Type Date Recorded Advance Directives, 04/11/2018 8:34 PM Living Will and Medical Power of Community Resource Consultant
--- OUTSIDE RECORDS SUMMARY | 2019-01-02 06:35 | XMS REPORT ---
Author Author Rosa Maria Romero [facility] eClinicalWorks Address Unknown Phone Unavailable Care Team Providers Care Chalk Cutter Name Role Phone Rosa Maria Romero Unavailable Allergies, Adverse Reactions, Alerts Substance Reaction Event Type N.K.D.A. Info Not Available Non Drug Allergy Problems Problem Type Condition Code Onset Dates Condition Status Problem Abdominal pain R10.9 Active Problem Arthralgia, unspecified joint M25.50 Active Problem Fatigue R53.83 Active Assessment DAVID positive R76.8 Active Assessment Fatigue R53.83 Active Problem DAVID positive R76.8 Active Medications Medication Code System Code Instructions Start Date End Date Status Dosage Omeprazole [facility] [id number] 20 MG Orally Once a day Active 1 capsule Vital Signs Date/Time: September 19, 2018 BMI 21.17 Index Weight 143.4 lbs Height 69 in Temperature 97.7 F Cardiac Monitoring Heart Rate 64 /min Blood Pressure Diastolic 80 mm Hg Blood Pressure Systolic 110 mm Hg Results No Known Results Summary Purpose eClinicalWorks Submission
--- OUTSIDE RECORDS SUMMARY | 2019-01-02 06:35 | XMS REPORT ---
Author Author Manuel King Organization [employer] Address Unknown Phone Unavailable Care Team Providers Care Director Digital Communications Name Role Phone Manuel King CP Unavailable Allergies No Known Allergies Problems Problem Type Condition Code Onset Dates Condition Status Problem Abdominal pain R10.9 Active Problem Arthralgia, unspecified joint M25.50 Active Problem Fatigue R53.83 Active Problem DAVID positive R76.8 Active Medications No Known Medications Results No Known Results Summary Purpose eClinicalWorks Submission
--- OUTSIDE RECORDS SUMMARY | 2019-01-02 06:35 | XMS REPORT | Continuity of Care Document ---
Author Author [employer] [facility] [employer] Address Unknown Phone Unavailable Care Team Providers Care Log Clerk Name Role Phone [facility] [employer] Unavailable Unavailable Problems Problem Status Onset Date Classification Date Reported Comments Source Abdominal pain Active Problem 12/26/2018 Nathan King Arthralgia, unspecified joint Active Problem 12/26/2018 Nathan King Fatigue Active Problem 12/26/2018 Nathan King DAVID positive Active Problem 12/26/2018 Nathan King Medications Medication Details Route Status Patient Instructions Ordering Provider Order Date Source Omeprazole 1 capsule Orally Active 20 MG Orally Once a day Nick Nathan King Allergies, Adverse Reactions, Alerts Substance Category Reaction Severity Reaction type Status Date Reported Comments Source N.K.D.A. Adverse Reaction Info Not Available Adverse Reaction Active 09/19/2018 Nathan King Immunizations No Data Provided for This Section Results Order Name Results Value Reference Range Date Interpretation Comments Source Blood leukocytes automated count (number/volume) 10.10 4.8 - 10.8 01/07/2018 [facility] Blood erythrocytes automated count (number/volume) 4.74 3.6 - 5.1 01/07/2018 [facility] Blood hemoglobin measurement (moles/volume) 15.0 12.0 - 16.0 01/07/2018 [facility] Automated blood hematocrit (volume fraction) 42.1 34.2 - 44.1 01/07/2018 [facility] Automated erythrocyte mean corpuscular volume 88.8 81 - 99 01/07/2018 [facility] Automated erythrocyte mean corpuscular hemoglobin (mass per erythrocyte) 31.6 28 - 32 01/07/2018 [facility] Automated erythrocyte mean corpuscular hemoglobin concentration measurement (mass/volume) 35.6 31 - 35 01/07/2018 [facility] RDW BldCo-Rto 13.0 11.7 - 14.4 01/07/2018 [facility] Automated blood platelet count (count/volume) 247 140 - 360 01/07/2018 [facility] Automated blood segmented neutrophil count as percentage of total leukocytes 54.2 38.7 - 80.0 01/07/2018 [facility] Automated blood lymphocyte count as percentage ot total leukocytes 35.4 18.0 - 39.1 01/07/2018 [facility] Automated blood monocyte count as percentage of total leukocytes 9.6 4.4 - 11.3 01/07/2018 [facility] Automated blood eosinophil count as percentage of total leukocytes 0.4 0.0 - 6.0 01/07/2018 [facility] Automated blood basophil count as percentage of total leukocytes 0.1 0.0 - 1.0 01/07/2018 [facility] IM GRANULOCYTES % 0.3 0.0 - 1.0 01/07/2018 [facility] Automated blood neutrophil count 5.5 2.1 - 6.9 01/07/2018 [facility] Blood lymphocytes count (number/volume) 3.6 1.0 - 3.2 01/07/2018 [facility] Blood monocytes automated count (number/volume) 1.0 0.2 - 0.8 01/07/2018 [facility] Automated blood eosinophil count 0.0 0.0 - 0.4 01/07/2018 [facility] Automated blood basophil count (count/volume) 0.0 0.0 - 0.1 01/07/2018 [facility] Absolute Immature Granulocyte (auto 0.03 0 - 0.1 01/07/2018 [facility] Serum or plasma sodium measurement (moles/volume) 138 136 - 145 01/07/2018 [facility] Serum or plasma potassium measurement (moles/volume) 3.4 3.5 - 5.1 01/07/2018 [facility] Serum or plasma chloride measurement (moles/volume) 103 98 - 107 01/07/2018 [facility] Serum or plasma carbon dioxide, total measurement (moles/volume) 20 22 - 29 01/07/2018 [facility] Serum or plasma anion gap 18.4 8 - 16 01/07/2018 [facility] Serum or plasma urea nitrogen measurement (mass/volume) 6 7 - 26 01/07/2018 [facility] Serum or plasma creatinine measurement (mass/volume) 0.76 0.57 - 1.11 01/07/2018 [facility] Serum or plasma urea nitrogen/creatinine mass ratio 8 6 - 25 01/07/2018 [facility] Estimated glomerular filtration rate (GFR) determination > 60 60 01/07/2018 [facility] Glucose measurement 104 74 - 118 01/07/2018 [facility] Serum or plasma calcium measurement (mass/volume) 10.6 8.4 - 10.2 01/07/2018 [facility] Serum or plasma total bilirubin measurement (mass/volume) 1.4 0.2 - 1.2 01/07/2018 [facility] Aspartate Amino Transf (AST/SGOT) 27 5 - 34 01/07/2018 [facility] Serum or plasma alanine aminotransferase measurement (enzymatic activity/volume) 26 0 - 55 01/07/2018 [facility] Serum or plasma protein measurement (mass/volume) 8.0 6.5 - 8.1 01/07/2018 [facility] Serum or plasma albumin measurement (mass/volume) 5.0 3.5 - 5.0 01/07/2018 [facility] Plasma globulin measurement (mass/volume) 3.0 2.3 - 3.5 01/07/2018 [facility] Serum or plasma albumin/globulin mass ratio 1.7 0.8 - 2.0 01/07/2018 [facility] Serum or plasma alkaline phosphatase measurement (enzymatic activity/volume) 79 40 - 150 01/07/2018 [facility] Serum or plasma amylase measurement (enzymatic activity/volume) 78 25 - 125 01/07/2018 [facility] Serum or plasma lipase measurement (enzymatic activity/volume) 16 8 - 78 01/07/2018 [facility] Urine color determination STRAW YELLOW 01/07/2018 [facility] Urine clarity CLOUDY CLEAR 01/07/2018 [facility] Specific gravity of Urine by Test strip 1.015 1.010 - 1.025 01/07/2018 [facility] Urine pH measurement by automated test strip 8 5 - 7 01/07/2018 [facility] Urine leukocyte esterase detection by dipstick NEGATIVE NEGATIVE 01/07/2018 [facility] Urine nitrite detection NEGATIVE NEGATIVE 01/07/2018 [facility] Urine protein measurement by test strip (mass/volume) NEGATIVE NEGATIVE 01/07/2018 [facility] Urine glucose detection NEGATIVE NEGATIVE 01/07/2018 [facility] Urine ketones detection by automated test strip NEGATIVE NEGATIVE 01/07/2018 [facility] Urine urobilinogen measurement by test strip (mass/volume) 0.2 0.2 - 1 01/07/2018 [facility] Urine total bilirubin measurement (mass/volume) NEGATIVE NEGATIVE 01/07/2018 [facility] Urine erythrocytes detection 3+ NEGATIVE 01/07/2018 [facility] Automated urine sediment leukocyte count by microscopy (number/high power field) NONE 0 - 5 01/07/2018 [facility] Erythrocytes detection in urine sediment by light microscopy 11-20 0 - 5 01/07/2018 [facility] Bacteria detection in urine sediment by light microscopy FEW NONE 01/07/2018 [facility] Epithelial cells detection in urine sediment by light microscopy RARE NONE 01/07/2018 [facility] Urine human chorionic gonadotropin (hCG) detection NEGATIVE NEGATIVE 01/07/2018 [facility] Pathology Reports No Data Provided for This Section Diagnostic Reports No Data Provided for This Section Consultation Notes No Data Provided for This Section Discharge Summaries No Data Provided for This Section History and Physicals No Data Provided for This Section Vital Signs Vital Sign Value Date Comments Source Weight 143.4 09/19/2018 Nathan King Height 69 09/19/2018 Nathan King Temperature Oral (F) 97.7 F 09/19/2018 Nathan King Heart Rate 64 09/19/2018 Nathan King Diastolic (mm Hg) 80 09/19/2018 Nathan King Systolic (mm Hg) 110 09/19/2018 Nathan King Encounters Location Location Details Encounter Type Encounter Number Reason For Visit Attending Provider ADM Date DC Date Status Source Departed Emergency Room [id number] SIN CHENEY MD 01/07/2018 01/07/2018 [facility] Departed Emergency Room [id number] BRIONNA LYLES MD 04/11/2018 04/11/2018 [facility] Procedures Procedure Code Date Perfomer Comments Source Computed tomography of abdomen and pelvis with contrast [id number] 01/07/2018 [facility] US transvaginal [id number] 01/07/2018 [facility] Limited Doppler ultrasound of vessels of pelvis [id number] 01/07/2018 [facility] Assessment and Plan No Data Provided for This Section Plan of Care Plan of Care Date Source Discharge Date 04/11/18 4:55pm Disposition ELOPED Condition at Discharge Stable Prescriptions See Medication Section 04/11/2018 [facility] Social History Social History Date Source No social history information available. 04/11/2018 [facility] Family History No Data Provided for This Section Advance Directives Order Name Results Value Date Source Advance Directives Advance Directives Directive Response Recorded Date/Time Does the patient have an advance directive? No 01/07/18 5:49am If yes, is advance directive on file with [facility]? No 01/07/18 5:49am If not on file with [facility] will patient provide a copy? No 01/07/18 5:49am 04/11/2018 [facility] Functional Status No Data Provided for This Section
[2019-01-02 08:50] VITALS: BP 117/70
--- NOTE | 2019-01-02 11:27 | Operative Report ---
DATE OF PROCEDURE: 01/02/2019 SURGEON: Jhonny Enriquez MD PROCEDURE: Colonoscopy with polypectomy. INDICATIONS FOR PROCEDURE: Abdominal pain, anorectal pain, constipation. MEDICATIONS: The patient was done under MAC, please see anesthesiologist's note. PROCEDURE IN DETAIL: With the patient in left lateral decubitus position, flexible fiberoptic Olympus colonoscope was inserted into the rectum with ease and advanced all the way to the cecum. It was then withdrawn slowly. Mucosa overlying the cecum, ascending colon, transverse and descending appeared to be within normal limits. An approximately 5 mm sessile polyp was snared from the sigmoid colon. The rectum grossly appeared to be within normal limits. The scope was then retroflexed into the distal rectum and small internal hemorrhoids were noted, none of which was actively bleeding. The scope was then straightened out, it was subsequently withdrawn. The patient tolerated the procedure well. IMPRESSION: 1. Sigmoid colon polyp, snared. 2. Internal hemorrhoids, none actively bleeding. PLAN: Follow up histology. Initiate high-fiber, low-fat diet. Initiate high-fiber supplement. Check TSH. Timing of followup colonoscopy pending pathology report. Jhonny Enriquez MD [facility] [place] /[id number] cc: Abram Brown DO
== END | disposition home or self-care (01) ==
LOC: OR 06:30
PROVIDERS: ATTEND Internal Medicine Gastroenterology
DX: K59.00 Constipation, unspecified (principal); K63.5 Polyp of colon; K62.5 Hemorrhage of anus and rectum; K64.8 Other hemorrhoids; K21.9 Gastro-esophageal reflux disease without esophagitis
CPT/HCPCS: 36415; 45385; 81025; 84443; J2001; J2250; J2704 ×2; 45378

== ENCOUNTER → 2019-01-04 | Outpatient (CLI) | payer BC ==
[~2019-01-04] MED LIST changes: -HYOSCYAMINE 0.125 MG TAB ONE; +IOPAMIDOL 370 MG/ML 200 ML INFUS..BTL INJ ONE; -LIDOCAINE HCL 2% LOCAL INJ 5 ML SDV VIAL INJ ONE; -MIDAZOLAM HCL 2 MG/2 ML VIAL ONE; -PROPOFOL IV EMULSION 10 MG/ML 20 ML VIAL ONE; -PROPOFOL IV EMULSION 10 MG/ML 50 ML VIAL ONE; -SIMETHICONE 40 MG/0.6 ML BTL ONE; +SODIUM CHLORIDE 0.9% 50ML 50 ML ONE
--- NOTE | 2019-01-04 17:19 | Diagnostic Imaging Report ---
CT of the abdomen and pelvis, with contrast, 01/04/2019. History: Abdominal pain. Comparison: None available. Technique: Multidetector CT scanning of the abdomen and pelvis was performed from the level of the lung bases to the inferior pubic rami after intravenous administration of contrast. Coronal and sagittal multiplanar reformations were obtained. RADIATION DOSE: Total DLP: 222 mGy*cm Dose modulation, iterative reconstruction, and/or weight based adjustment of the mA/kV was utilized to reduce the radiation dose to as low as reasonably achievable. Discussion: LUNG BASES: No visualized abnormalities. ABDOMEN: The liver, gallbladder, biliary tree, spleen, pancreas, adrenal glands, and kidneys are normal. The hepatic vein, portal vein, and splenic vein are patent. The abdominal aorta is within normal limits for size. Evaluation of bowel is limited without oral contrast. There is no bowel dilatation. There is no evidence of adenopathy or free fluid. PELVIS: The bladder, uterus, adnexa are normal in appearance. There is no evidence of free fluid or adenopathy. BONES AND SOFT TISSUES: No abnormality. IMPRESSION: Normal CT of the abdomen and pelvis. Signed by: Imer Johnson on 01/04/2019 5:16 PM
== END ==
LOC: CT 15:32
PROVIDERS: ATTEND Internal Medicine Gastroenterology
DX: R10.9 Unspecified abdominal pain (principal)
CPT/HCPCS: 74177; 81025; Q9967